=== PATIENT | male | born 1980 | race African-American/Black ===

== ENCOUNTER 2023-11-14 14:27 | Emergency (ER) | payer OTHER ==
[~2023-11-14] VITALS: Ht 190.5 cm; Wt 113.0 kg
[2023-11-14 14:49] VITALS: BP 124/85
[2023-11-14 15:00] VITALS: BP 120/68
[2023-11-14] MEDS ORDERED: SODIUM CHLORIDE 0.9% 1,000 ML IV ONE (15:10)
[2023-11-14] MEDS ORDERED: traMADol HCL 50 MG/TAB PO ONE (15:10)
[2023-11-14 15:43] LABS: URINE BILIRUBIN - DIPSTICK Negative (NEGATIVE); URINE BLOOD DIPSTICK Small (NEGATIVE); URINE GLUCOSE - DIPSTICK Negative (NEGATIVE); URINE KETONE Negative (NEGATIVE); URINE LEUK ESTERASE Negative (NEGATIVE); URINE NITRITE - DIPSTICK Negative (Negative); URINE PH 5.5 (4.5-8.0); URINE PROTEIN - DIPSTICK Negative (NEG-TRACE); URINE UROBILINOGEN - DIPSTICK 0.2 E.U./dL (0.2)
[2023-11-14 15:48] LABS: BASO% 0.1 % (0-3); EOS% 1.2 % (0-8); HEMATOCRIT 39.1 % (39.0-50.0); HEMOGLOBIN 12.8 g/dl (14.0-18.0); LYMPH% 37.3 % (15-41); MEAN CELL VOLUME 84.3 fL CALC (80.0-100.0); MEAN CORPUSCULAR HGB 27.6 pG CALC (26.0-32.0); MEAN CORPUSCULAR HGB CONC 32.7 g/dL CAL (32.0-36.0); NEUT# 3.75 thou/uL (1.82-7.42); NEUT% 51.4 % (42-76); RED BLOOD COUNT 4.64 mill/uL (4.70-6.10); RED CELL DISTRI WIDTH 13.9 % (11.5-15.5)
[2023-11-14 15:54] LABS: URINE COLOR Yellow
[2023-11-14 15:59] LABS: ALBUMIN 4.7 g/dL (3.2-5.0); BILIRUBIN, TOTAL 0.4 mg/dL (0.2-1.3); TOTAL PROTEIN 7.8 g/dL (6.3-8.2)
[2023-11-14 16:00] LABS: POTASSIUM 4.7 mmol/l (3.5-5.1)
[2023-11-14 16:02] LABS: URINE RBC 0-2 RBC/hpf (0-5)
[2023-11-14 16:05] LABS: PROTHROMBIN TIME 9.9 SECONDS (9.0-12.5)
[2023-11-14] MEDS ORDERED: LACTULOSE 20 GM/30 ML UDC PO ONE (18:10)
[2023-11-14] MEDS ORDERED: Polyethylene Glycol 3350 17 GM/PKT PO ONE (18:10)
[2023-11-14] MEDS ORDERED: CONSTULOSE10 GM/15 M PO (18:16)
[2023-11-14 18:24] VITALS: BP 127/88
[2023-11-14 18:47] VITALS: BP 127/88
== END 2023-11-14 18:29 | disposition designated cancer center or children's hospital (05) | DRG 696 ==
LOC: ED 14:27
PROVIDERS: Family Medicine; Nurse Practitioner
DX: R31.9 Hematuria, unspecified (principal); K59.00 Constipation, unspecified; I10 Essential (primary) hypertension; E11.9 Type 2 diabetes mellitus without complications
CPT/HCPCS: Q9967